=== PATIENT | female | born 1965 | race Caucasian/White ===

== ENCOUNTER 2016-12-31 05:30 | Day surgery (SDC) | payer OTHER ==
[2016-12-28 11:47] LABS: HEMATOCRIT 41.4 % (36.0-48.0); HEMOGLOBIN 13.7 g/dL (12-16); MCH 29.7 pg (26.0-34.0); MCHC 33.1 g/dL (31.0-37.0); MCV 89.6 fL (80.0-100.0); MEAN PLATELET VOLUME 9.9 fL (7.4-10.4); RBC 4.62 10x6/uL (4.00-5.40); RDW 14.4 % (11.5-14.5); WBC 7.9 10x3/uL (4.8-10.8)
[~2016-12-31] VITALS: Ht 162.6 cm; Wt 98.9 kg
[~2016-12-31 05:30] MED LIST: OMEPRAZOLE40 MG PO
[2016-12-31 05:52] VITALS: BP 141/74; Ht 162.6 cm; Wt 98.9 kg
[2016-12-31 06:20] LABS: HCG URINE NEGATIVE (NEGATIVE)
[2016-12-31] MEDS ORDERED: HYDROCODON-ACE1 EAC7 PO (08:53)
--- NOTE | 2016-12-31 11:15 | OP ---
PATIENT NAME: MARIBETH HAYWOOD MEDICAL RECORD: [id number] :63 LOCATION:D.OPS ADMISSION DATE: SURGEON: MELISSA ENRIQUEZ MD DATE OF OPERATION: 12/31/2016 SURGEON: Melissa Enriquez MD PREOPERATIVE DIAGNOSES: 1. Esophageal dysphagia. 2. Gastroesophageal reflux disease. 3. Gastric band complication. 4. History of laparoscopic adjustable gastric banding. POSTOPERATIVE DIAGNOSES: 1. Esophageal dysphagia. 2. Gastroesophageal reflux disease. 3. Gastric band complication. 4. History of laparoscopic adjustable gastric banding. PROCEDURE PERFORMED: Laparoscopic removal of gastric band with removal of subcutaneous port. ANESTHESIA: General. COMPLICATIONS: None. SPECIMENS: Band and subcutaneous port. ESTIMATED BLOOD LOSS: 10 cc. Case was clean. OPERATIVE COURSE: After consent was obtained, the patient was taken to the operating room and placed in supine position on the operating table. Next, general anesthesia was given via endotracheal intubation after a timeout was taken to confirm the correct patient and procedure. The abdomen was then prepped and draped in typical sterile fashion. Local anesthetic was injected just above the umbilicus. A stab incision was made with 11-blade scalpel. Using a 5-mm bladeless optical trocar, the abdomen was entered under direct laparoscopic vision. Adequate pneumoperitoneum was achieved. The abdominal cavity was inspected. No evidence of bowel injury. No evidence of bleeding. The patient was then placed in steep reverse Trendelenburg position. A medium Tom retractor was then placed in the left lobe of the liver. Two additional trocars were then placed in the right upper quadrant. Under direct laparoscopic vision and administration of local anesthetic, the band was dissected using blunt dissection, Metzenbaum scissors and electrocautery. Once old scars and bands were dissected, the band was disconnected. It was pulled through the previous area of dissection without complication. The area was meticulously inspected and irrigated. There was no evidence of injury. No evidence of bleeding. At this time, the local anesthetic was injected in the left upper quadrant, the previous scar incision over the palpable subcutaneous port skin was incised with #15 blade scalpel. Dissection continued down to the level of the external oblique fascia, which ____ port was encountered. All 3 sutures were cut. The port in the band removed through the left upper quadrant. The left upper quadrant fascia was then closed with an 0 Prolene suture. Skin OPERATIVE REPORT [id number] MARIBETH HAYWOOD was closed with 4-0 Stratafix. Pneumoperitoneum was reestablished. The abdominal cavity was inspected. There was no evidence of bowel injury. No evidence of bleeding. The GE junction was irrigated and suctioned again. No evidence of bowel injury. No evidence of bleeding. At this time, all the Tom liver retractor was removed. The remaining portion of the abdomen was examined. No evidence of bowel injury. No evidence of bleeding. At this time, all remaining instruments were removed. The abdomen was desufflated. Trocars removed. Trocar sites were closed with 4-0 Monocryl, Mastisol and Steri-Strips. At the end of the case, all needle and instrument counts were correct. No complications occurred. TRANSINT:[id number] Voice Confirmation ID: [id number] DOCUMENT ID: [id number] MELISSA ENRIQUEZ MD at 1115 CC: [id number] DICTATION DATE: 12/31/16 0851 PEDIATRIC ONCOLOGIST: 12/31/16 1052 REG [facility] [address] [place] [address]
--- NOTE | 2017-01-16 15:19 | HP ---
PATIENT: MARIBETH HAYWOOD MEDICAL RECORD: [id number] ACCOUNT: [id number] LOCATION:[place] : 63 ADMISSION DATE: 12/31/16 HISTORY AND PHYSICAL EXAMINATION Surgical History and Physical Addendum DATE OF HISTORY AND PHYSICAL: 12/31/2016 CHIEF COMPLAINT: Esophageal dysphagia. HISTORY OF PRESENT ILLNESS: This is a 51-year-old female, who had a gastric band placed approximately 8 years ago, she had complications and had replaced in 2010. She is now having complications again. She presents to my office with chronic vomiting, severe dysphagia with solid food, severe reflux as well as gastroesophageal reflux disease. PAST MEDICAL HISTORY: GERD, heart burn. PAST SURGICAL HISTORY: Gastric band in 2008, gastric band in 2010. SOCIAL HISTORY: She is a nonsmoker, social alcohol occasionally. FAMILY HISTORY: Hypertension and colon cancer in her father. Mother has hypertension and arthritis. MEDICATIONS: Include aspirin, cheratussin, cyclobenzaprine, and omeprazole. ALLERGIES: No known drug allergies. REVIEW OF SYSTEMS: A 12-point review of system was obtained, pertinent positive and negative as per the HPI. PHYSICAL EXAMINATION: VITAL SIGNS: Stable. She is afebrile. CARDIOVASCULAR: She has normal sinus rhythm. EYES: Extraocular muscles are intact. EARS, NOSE, AND THROAT: Normal dentition. LUNGS: Clear to auscultation bilaterally. ABDOMEN: Soft, nontender, and nondistended. EXTREMITIES: Neurovascular intact. No edema. IMPRESSION: A 51-year-old female with esophageal dysphagia, gastroesophageal reflux disease and chronic vomiting from complications of laparoscopic gastric banding procedure. PLAN: OR today for laparoscopic removal of gastric band. TRANSINT:[id number] Voice Confirmation ID: [id number] DOCUMENT ID: [id number] HISTORY AND PHYSICAL [id number] MARIBETH HAYWOOD MELISSA CHARLES MD at 1519 CC: [id number] DICTATION DATE: 01/16/17 1111 PHOTOGRAPHER MODEL: 01/16/17 1204 [facility] 12/31/[address] [address]
== END 2016-12-31 10:30 | disposition home or self-care (01) ==
LOC: D.OPS 05:30 → D.PAN 07:30 → D.OPS 08:45 → D.PAN 09:30 → D.OPS 10:30
PROVIDERS: Anesthesiology; Surgery
DX: K95.09 Other complications of gastric band procedure (principal); R13.19 Other dysphagia; K21.9 Gastro-esophageal reflux disease without esophagitis

== ENCOUNTER → 2017-02-04 08:14 | Outpatient (CLI) | payer OTHER ==
[2016-12-31 05:52] VITALS: BMI 37.5
[~2017-02-04 08:14] MED LIST changes: +HYDROCODON-ACE1 EAC7 PO; +PROTONIX40 MG PO
== END | disposition home or self-care (01) ==
LOC: D.RAD 08:14
DX: R13.19 Other dysphagia (principal); K21.9 Gastro-esophageal reflux disease without esophagitis; R11.10 Vomiting, unspecified

== ENCOUNTER 2017-02-18 06:15 | Day surgery (SDC) | payer OTHER, SELFPAY ==
[~2017-02-18] VITALS: Ht 162.6 cm; Wt 96.2 kg
[~2017-02-18 06:15] MED LIST changes: -PROTONIX40 MG PO
[2017-02-18 06:57] LABS: HEMOGLOBIN 13.5 g/dL (12-16); MCH 29.7 pg (26.0-34.0); MCHC 33.8 g/dL (31.0-37.0); MCV 87.9 fL (80.0-100.0); MEAN PLATELET VOLUME 10.3 fL (7.4-10.4); RBC 4.55 10x6/uL (4.00-5.40); RDW 14.7 % (11.5-14.5); WBC 7.6 10x3/uL (4.8-10.8)
[2017-02-18 07:19] VITALS: BP 158/98; Ht 162.6 cm; Wt 96.2 kg
[2017-02-18 07:37] LABS: HCG URINE NEGATIVE (NEGATIVE)
--- NOTE | 2017-02-18 11:09 | OP ---
PATIENT NAME: MARIBETH HAYWOOD MEDICAL RECORD: [id number] :63 LOCATION:D.OPS ADMISSION DATE: SURGEON: MELISSA ENRIQUEZ MD DATE OF OPERATION: 02/18/2017 SURGEON: Melissa Enriquez MD PREOPERATIVE DIAGNOSES: 1. Esophageal dysphagia 2. Gastroesophageal reflux disease. 3. Chronic vomiting. 4. History of adjustable gastric banding. POSTOPERATIVE DIAGNOSES: 1. Esophageal dysphagia 2. Gastroesophageal reflux disease. 3. Chronic vomiting. 4. History of adjustable gastric banding. PROCEDURES PERFORMED: Esophagogastroduodenoscopy with biopsy. ANESTHESIA: Total intravenous anesthesia. SPECIMENS 1. Duodenum. 2. Antrum. 3. Gastric body. 4. Gastroesophageal junction. COMPLICATIONS: None. ESTIMATED BLOOD LOSS: Minimal. Case was contaminated. OPERATIVE COURSE: After consent was obtained, the patient was taken to the endoscopy suite. A timeout was taken to confirm the correct patient and procedure. Adequate IV anesthesia was given. A bite block was placed. Hurricaine [place] was administered. Next, the gastroscope was inserted through the bite block. It was passed through the oropharynx, posterior to the epiglottis. It was advanced to the esophagus under direct endoscopic vision. It was placed in the stomach. The stomach was insufflated. The scope was advanced to the pylorus. The pylorus was intubated and the duodenum was examined. The duodenum appeared within normal limits. Multiple cold biopsies were taken at this time. The scope was withdrawn through the pylorus. There was some mild antritis noted. Multiple biopsies were taken in the region of the gastric antrum. The stomach and body were examined. There was some mild gastritis noted. Biopsies were taken. Scope was retroflexed. There was a small to moderate sized hiatal hernia noted. There was no residual scarring noted from the previous gastric band. The scope was withdrawn to the GE junction, at which time, multiple biopsies were taken. There were some abnormalities of the Z line noted. There was some dilatation of the lower esophagus. The stomach was then desufflated. The scope was withdrawn slowly to the esophagus. There were no esophageal abnormalities identified. At this time, the procedure was terminated. At the end of procedure, all needle and OPERATIVE REPORT [id number] MARIBETH HAYWOOD instrument counts were correct. No complications occurred. The patient tolerated the procedure well. The patient was transferred to the recovery room in satisfactory condition. TRANSINT:[id number] Voice Confirmation ID: [id number] DOCUMENT ID: [id number] MELISSA ENRIQUEZ MD at 1109 CC: [id number] DICTATION DATE: 02/18/17910 CEMENTING MACHINE OPERATOR: 02/18/17 1036 [address] [place] [id number] [place] [id number]
--- NOTE | 2017-02-18 16:45 | NUR ---
[address] OSPINA. PROCEDURE FINDINGS DISCUSSED WITH PATIENT. Abhilash Arroyo.NDavid 1045 TOLERATED FULL LIQUID DIET WITHOUT NAUSEA OR EMESIS. UP TO BATHROOM. AMBULATORY WITHOUT DIFFICULTY. VOIDED URINE. BACK TO BED. IV DC'ED WITH CATH INTACT & 200ML LTC. DRESSING. Abhilash HUSTON R.N. 1110 DRESSED. AWAKE & ALERT. GVINE DISCHARGE INSTRUCTIONS INCLUDING: MED REC, SHEET LISTING NSAIDS & BLOOD THINNNERS TO AVOID, & D/C INSTRUCTIONS SHEET POST ENDOSCOPIC PROCEDURES. PT VOICED UNDERSTANDING. TO PRIVATE CAR PER WHEELCHAIR BY VOLUNTEER. HOME WITH FEMALE VISITOR. Abhilash HUSTON R.N.
== END 2017-02-18 11:10 | disposition home or self-care (01) ==
LOC: D.OPS 06:15
PROVIDERS: Anesthesiology; Surgery
DX: K29.80 Duodenitis without bleeding (principal); K29.50 Unspecified chronic gastritis without bleeding; R13.10 Dysphagia, unspecified; K21.9 Gastro-esophageal reflux disease without esophagitis; Z98.84 Bariatric surgery status

== ENCOUNTER 2017-02-25 05:41 | Inpatient (IN) | payer OTHER ==
[2017-02-22 10:11] LABS: HEMATOCRIT 40.3 % (36.0-48.0); HEMOGLOBIN 13.2 g/dL (12-16); MCH 29.4 pg (26.0-34.0); MCHC 32.8 g/dL (31.0-37.0); MCV 89.8 fL (80.0-100.0); MEAN PLATELET VOLUME 10.6 fL (7.4-10.4); RBC 4.49 10x6/uL (4.00-5.40); RDW 14.9 % (11.5-14.5); WBC 8.5 10x3/uL (4.8-10.8)
[~2017-02-25] VITALS: Ht 162.6 cm; Wt 96.4 kg
[2017-02-25 06:32] VITALS: BP 142/73; BMI 36.4
[2017-02-25 06:51] LABS: HCG URINE NEGATIVE (NEGATIVE)
--- NOTE | 2017-02-25 10:41 | NUR ---
1044: WHYTE REMOVED AFTER CASE. -ECOSTER
[2017-02-25 11:39] VITALS: BP 170/73
--- NOTE | 2017-02-25 11:47 | NUR ---
RECIEVED TO ROOM 2235 FROM RR AWAKE AND ALERT ORIENTED X 3 LUNGS CLAER BIATERAL HAS LAP INCISIONS X 5 TO ABDOMEN. MOTHER AT BEDSIDE. ORINETD TO STAFF ROOM AND CALL LIGHT SYSTEM. PIV PATENT TO LR PER ORDER.
[2017-02-25 12:08] VITALS: BP 146/85; Ht 162.6 cm; Wt 96.4 kg
--- NOTE | 2017-02-25 14:00 | NUR ---
PT UP TO BR WITH ASSIST. 1430 AMBULATED 250 FT WITH THIS NURSE. TOLERATED WELL VITAL SIGNS WNL AFTER AMBULATION B/P 152/80 LAP SITES X 6 NOTED WITH MINIMAL SANGUANOUS DRAINAGE NOTED TO UMBILICAL INCISION.
--- NOTE | 2017-02-25 14:22 | OP ---
PATIENT NAME: MARIBETH HAYWOOD MEDICAL RECORD: [id number] :63 LOCATION:D.MS [facility]35 ADMISSION DATE:02/25/17 SURGEON: MELISSA OSPINA MD DATE OF OPERATION: 02/25/2017 SURGEON: Melissa Ospina MD PREOPERATIVE DIAGNOSES: 1. Esophageal dysphagia 2. Gastroesophageal reflux disease. 3. Chronic vomiting. 4. History of laparoscopic adjustable banding. 5. Morbid obesity. POSTOPERATIVE DIAGNOSES: 1. Esophageal dysphagia 2. Gastroesophageal reflux disease. 3. Chronic vomiting. 4. History of laparoscopic adjustable banding. 5. Morbid obesity. PROCEDURE PERFORMED: 1. Laparoscopic hiatal hernia repair. 2. Laparoscopic vertical sleeve gastrectomy. 3. Esophagogastroduodenoscopy. ANESTHESIA: General. SPECIMENS: Partial gastrectomy. ESTIMATED BLOOD LOSS: 50 cc. COMPLICATIONS: None. Case was contaminated. OPERATIVE COURSE: After consent was obtained, the patient was taken to the operating room and placed in supine position on the operating table. Next, general anesthesia was given via endotracheal intubation. Thereafter, a timeout was taken to confirm the correct patient and procedure. The abdomen was prepped and draped in typical sterile fashion. Adequate local anesthetic was injected just above the umbilicus. A stab incision was made with 11-blade scalpel. Using a 11-mm bladeless optical trocar, the abdomen was entered under direct laparoscopic vision. Adequate pneumoperitoneum was achieved. The abdominal cavity was inspected. No evidence of bowel injury. No evidence of bleeding. The patient was placed in steep reverse Trendelenburg position.. At this time, all remaining trocars were placed, a 12-mm and 5-mm trocar in the right lateral quadrant. Two 5-mm trocars in the left lateral quadrants and Tom liver retractor was placed in the subxiphoid position. The left lobe of the liver was retracted towards the GE junction. There were significant adhesions on the anterior part of the stomach and posterior part of the liver from his previous gastric band removal. A laparoscopic lysis of adhesions was performed. The gastrohepatic ligament was opened using the Harmonic scalpel. Dissection continued along the gastrohepatic ligament. The right crura was identified. Dissection continued posteriorly on the right crura until the left crura was OPERATIVE REPORT [id number] MARIBETH HAYWOOD identified. Dissection then continued anteriorly. Next, the short gastrics were taken. The pylorus was identified. Starting approximately 6 cm proximal to the pylorus. The short gastrics were taken along the entire length of the greater curvature of stomach all the way to the right crura with the Harmonic scalpel. At this time, dissection continued posteriorly along the left crura and anteriorly. The mediastinum was dissected to approximately 4 cm of intraabdominal esophagus were obtained. Once this was complete, the hiatal hernia was repaired using 0 polypropylene suture. Next, a 40-Andorran bougie was passed through the oropharynx under direct laparoscopic vision. Once ____ stomach, it was advanced through the pylorus and placed along the lesser curvature of the stomach. The vertical sleeve gastrectomy was then completed using the 60 mm powered linear cutting stapler with cold loads. The staple line was performed along the length of the 40-Andorran bougie. Once this was complete, the partial gastrectomy specimen was placed in the left pericolic gutter. The suture line was imbricated using an 2-0 Stratafix suture. Tisseel was applied along the hiatal hernia repair. At this time, a bowel clamp was placed across the first portion of duodenum and esophagogastroduodenoscopy was performed by Dr. Ohara. The scope was advanced under direct endoscopic vision and was passed into the stomach, at which time, the stomach was insufflated. The upper abdomen was filled with irrigation. A leak test was performed, which showed no evidence of leak. At this time, the stomach was desufflated. The endoscope was removed. All remaining irrigation was suctioned from the abdomen. The abdominal cavity was inspected. There was no evidence of bowel injury. No evidence of bleeding. At this time, the Tom liver retractor was removed. The 5-mm ____ was placed in the lateral port. The 12-mm and 11-mm trocar sites were closed with 0 Vicryl suture and a Ahmet-Isaac suture passer under direct laparoscopic vision. At this time, all remaining instruments were removed. The abdomen was desufflated. Trocars were removed. Skin was closed with 4-0 Monocryl, Mastisol and Steri-Strips. At the end of the case, all needle and instrument counts were correct. No complications occurred. The patient was extubated and transferred to the PACU in stable condition. TRANSINT:[id number] Voice Confirmation ID: [id number] DOCUMENT ID: [id number] MELISSA OSPINA MD at 1422 CC: [id number] DICTATION DATE: 02/25/17 1050 SOLUTION SPECIALIST: 02/25/17 1301 ADM [address] [place] [id number] [place] [address]
[2017-02-25 19:00] VITALS: BP 170/85
--- NOTE | 2017-02-26 01:36 | NUR ---
2010)REC'D UP IN BATHRM. DURING WALKING ROUNDS.OFELIA. WELL.ABD. SOFT WITH STERI STRIPS TO 6 LAP SITES.NO REDNESS OR DRAINAGE OBSERVED.DENIES PAIN C/O SORENESS.BOWEL SOUNDS HYPOACTIVE ALL QUAD.DENIES NAUSEA.ENCOURAGED TO WALK,WALK,WALK. USES INCENT. BECKY WHILE AWAKE VOICES UNDERSTANDING. WILL CONTINUE TO MONITOR FOR ANY CHGES.AND FOLLOW CURRENT PLAN OF CARE.
--- NOTE | 2017-02-26 03:02 | NUR ---
RESTING WITH EYES CLOSED, NO DISTRESS NOTED, SR'S UP ,CL IN REACH
[2017-02-26 04:00] VITALS: BP 140/70
[2017-02-26 04:58] LABS: BASOPHILS 0.2 % (0.0-2.0); EOSINOPHILS 2.5 % (0-7); HEMATOCRIT 34.1 % (36.0-48.0); IMMATURE GRANULOCYTES 0.6 % (0-5); LYMPHOCYTES 17.3 % (15-50); MCH 28.8 pg (26.0-34.0); MCHC 32.3 g/dL (31.0-37.0); MCV 89.3 fL (80.0-100.0); MONOCYTES 6.2 % (2-11); NEUTROPHILS 73.2 % (40-80); RBC 3.82 10x6/uL (4.00-5.40); WBC 9.4 10x3/uL (4.8-10.8)
[2017-02-26 05:11] LABS: CALC OSMOLALITY 270 mosm/kg (275-300); CHLORIDE - SERUM 100 mmol/L (98-107); CREATININE - SERUM 0.7 mg/dL (0.6-1.3); GLUCOSE 112 mg/dL (74-106); MAGNESIUM - SERUM 1.9 mg/dL (1.8-2.4); POTASSIUM - SERUM 3.4 mmol/L (3.5-5.1); SODIUM 136 mmol/L (136-145); UREA NITROGEN 8 mg/dL (7-18); eGFR NON AFRICAN AMERICAN > 90 mL/min (90-120)
[2017-02-26 05:13] LABS: PLATELET COUNT 203 10x3/uL (130-400)
[2017-02-26] MEDS ORDERED: HYDROCODON-ACE1 EAC7 PO (08:33)
[2017-02-26] MEDS ORDERED: PROTONIX40 MG PO (08:33)
--- NOTE | 2017-02-26 08:34 | NUR ---
PT AWAKE AND ALERT ORINETED X 3 LUNGS CLAER BILATERAL ABDOMEN TENDER TO TOUCH. ALL ADLS PER SELF CARE WITH STAND BY ASSIST OF STAFF LAP SITES X 6 NOTED WITH STERI STRIPS TO DISCHARGE TO DAY
--- NOTE | 2017-02-26 11:30 | NUR ---
PT DISCHARGE INSTRUCTIONS GIVEN PIV DISCONTINUED PER ORDER EXPRESSED UNDERSTANDING OF ALL D/C INSRTRUCTION AND FOLLOW UP APPTS. D/C VIA WHEELCHAIR TO PRIVATE VEHICLE WITH FAMILY
== END 2017-02-26 11:52 | disposition home or self-care (01) | DRG 328 ==
LOC: D.MS 05:41 → D.SDCHOLD 05:41 → D.MS 08:29
PROVIDERS: Anesthesiology; ADMIT Surgery
PROC: 0BQS4ZZ (ICD-10-PCS; 2017-02-25)
PROC: 0BQR4ZZ (ICD-10-PCS; 2017-02-25)
PROC: 0DB64Z3 Excision of Stomach, Percutaneous Endoscopic Approach, Vertical (ICD-10-PCS; principal; 2017-02-25 07:30)
DX: K44.9 Diaphragmatic hernia without obstruction or gangrene (principal); E66.01 Morbid (severe) obesity due to excess calories; Z68.36 Body mass index [BMI] 36.0-36.9, adult; R13.10 Dysphagia, unspecified; K21.9 Gastro-esophageal reflux disease without esophagitis; R11.10 Vomiting, unspecified

== ENCOUNTER 2021-02-21 10:10 | Day surgery (SDC) | payer OTHER ==
[~2021-02-21] VITALS: Ht 162.6 cm; Wt 93.4 kg
[~2021-02-21 10:10] MED LIST changes: +PROTONIX40 MG PO
[2021-02-21 11:48] VITALS: BP 144/71; Ht 162.6 cm; Wt 93.4 kg
[2021-02-21 12:12] LABS: HEMATOCRIT 43.4 % (36.0-48.0); MCH 32.7 pg (26.0-34.0); MCHC 34.6 g/dL (31.0-37.0); MCV 94.6 fL (80.0-100.0); MEAN PLATELET VOLUME 9.4 fL (7.4-10.4); RBC 4.59 10x6/uL (4.00-5.40); RDW 15.9 % (11.5-14.5); WBC 9.1 10x3/uL (4.8-10.8)
--- NOTE | 2021-02-21 14:33 | NUR ---
UPON COMPLETION OF COLONOSCOPY, PATIENT POSITIONED IN LITHOTOMY POSITION, PREPPED AND DRAPED. HEMORRHOIDECTOMY PROCEDURE TIME OUT AT 1430, PROCEDURE BEGAN AT 1431.
--- NOTE | 2021-02-21 16:55 | NUR ---
DC INSTURCTIONS GIVEN TO PT/SPOUSE. STATE UNDERSTANDING DC'D IV CATH FULLY INTACT. WILL DC SHORTLY.
--- NOTE | 2021-02-21 17:10 | NUR ---
PT LEFT UNIT VIA WC AT 1700
--- NOTE | 2021-02-21 17:24 | HP ---
PATIENT: MARIBETH HAYWOOD MEDICAL RECORD: [id number] ACCOUNT: [id number] LOCATION:DDavidOPS : 63 ADMISSION DATE: 02/21/21 PCP: ANTOINETTE MORALES MD HISTORY AND PHYSICAL EXAMINATION HISTORY OF PRESENT ILLNESS: The patient has been having hemorrhoidal problems. They include swelling as well as burning. She also describes some sharp pain. She has been having rectal bleeding as well. She is to undergo colonoscopy. We reviewed several different hemorrhoidal procedures including hemorrhoidectomy. The patient has elected for a procedure for prolapse and hemorrhoids. The risks and possible complications and alternatives of the procedure were explained to the patient. She elects to proceed. PAST MEDICAL AND SURGICAL HISTORY: She has had a lap band in the past and also a subsequent laparoscopic sleeve gastrectomy. She has undergone an EGD in the past. She has gastroesophageal reflux. FAMILY HISTORY: Father had hypertension. Mother had hypertension. ALLERGIES: TO ADHESIVE TAPE. PHYSICAL EXAMINATION: GENERAL: The patient does not appear acutely ill. She does not appear chronically ill. VITAL SIGNS: Reviewed. EARS: External ears appear normal. EYES: Extraocular movements are intact. NECK: Trachea is midline. CHEST: No intercostal retractions. PULMONARY: Nonlabored. No stridor. IMPRESSION: 1. Intractable symptomatic internal and external hemorrhoids. 2. Hematochezia. PLAN: Colonoscopy. Procedure for prolapse and hemorrhoids. TRANSINT:[id number] Voice Confirmation ID: [id number] DOCUMENT ID: [id number] APOLINAR GREGORY MD at 1724 CC: KENNY HAYWOOD MD [id number] DICTATION DATE: 02/21/21 1320 COLOR SHOP HELPER: 02/21/21 1419 [facility] 02/21/21 [place] [id number] [place] [address]
--- NOTE | 2021-02-23 09:40 | OP ---
PATIENT NAME: MARIBETH HAYWOOD MEDICAL RECORD: [id number] :63 LOCATION:D.OPS ADMISSION DATE: SURGEON: APOLINAR GREGORY MD DATE OF OPERATION: 02/21/2021 PRINCIPAL DIAGNOSES: 1. Hematochezia. 2. Intractable symptomatic external hemorrhoids. 3. Second-degree internal hemorrhoidal prolapse. POSTOPERATIVE DIAGNOSES: 1. Hematochezia. 2. Intractable symptomatic external hemorrhoids. 3. Second-degree internal hemorrhoidal prolapse. 4. 1.6 cm carpeting cecal polyp. PROCEDURE: 1. Procedure for prolapse and hemorrhoids. 2. Total colonoscopy to cecum. 3. Hot biopsy forceps polypectomy x1. 4. Application of 2 endoscopic clips for tissue reinforcement and hemostasis. SURGEON: Apolinar Gregory MD BLEACH PACKER: None. BLOOD LOSS: Minimal. ANESTHESIA: IV sedation. COMPLICATIONS: None. The patient was conveyed to the operating room electively on 02/21/2021. General anesthesia was induced by the anesthesia staff. The patient was placed in the Bah position. A digital rectal examination was performed. Colonoscope was inserted through the anus. It was easily advanced to the cecum. In the cecum, I noted, seen with narrow band imaging, a carpeting polyp. This was removed in 4 pieces utilizing hot biopsy forceps polypectomy technique. As this was the thinnest part of the colon, I wanted to reinforce this tissue. Additionally, there was minimal amount of bleeding. I deployed and fired two endoscopic clips, which I thought to be a nice job of reinforcing the area. I then slowly withdrew the endoscope. I intubated the ileum, which appeared normal. I continued to withdraw the endoscope. The prep was excellent. I dragged the folds. The pullback was greater than 20 mm pullback. A retroflexed view was obtained in the rectum. I un-retroflexed the scope and removed under direct vision. The patient was then placed in the lithotomy position with the buttocks taped laterally. The anus and perineal area were sterilely prepped and draped. A PPH dilator retractor was placed. The retractor was sewn in place to the surrounding anoderm with 2-0 silks. A mucosal pursestring suture of 2-0 Prolene was applied 1 cm cephalad to the clear retractor. The stapling device was advanced and the anvil was cephalad to the pursestring suture, which was then tightened. The stapling device was engaged. It was held in place for 3 minutes. It was then fired. It was removed. There was an entire doughnut of OPERATIVE REPORT [id number] MARIBETH HAYWOOD rectal mucosal tissue within the PPH stapling device. Bleeding along the anastomotic staple line was controlled with [id number] 3-0 Vicryl sutures. I examined the vagina. There was no evidence of full-thickness injury to the vagina. I saw no sutures from the back wall of the vagina. Gelfoam was applied within the anus and lower rectum. A combination of Marcaine and steroid preparation was used to infiltrate the perianal tissues. There were 2 anterior hemorrhoidal skin tags. I removed these with electrocautery. I then sewed up the skin with interrupted horizontal mattress 4-0 Vicryl Rapide sutures. The patient preoperatively had given me permission to remove skin tags. Americaine was applied to the external hemorrhoids. The patient was then extubated and conveyed to post-anesthesia care unit where she was in stable condition. She will need to be placed on a colonoscopy surveillance regimen due to this large polyp that will include surveillance colonoscopy in a year and then every 3 years for rest of life. There is no need for her to follow up with me in my office. Her , Georgi is a physician who is a friend of mine and I will talk to him over the phone regarding the pathology results and I can check in on how she is doing at that time. TRANSINT:[id number] Voice Confirmation ID: [id number] DOCUMENT ID: [id number] 02/23/2021 Edited for regional extension service specialist errors, [email or web address]. APOLINAR GREGORY MD at 0940 CC: KENNY HAYWOOD MD [id number] DICTATION DATE: 02/21/21 1759 DENITRATOR OPERATOR: 02/22/21 0101 [facility] 02/21/21 [place] [address] [place] [address]
== END 2021-02-21 17:00 | disposition home or self-care (01) ==
LOC: D.OPS 10:10
PROVIDERS: Anesthesiology; ATTEND Surgery
DX: K92.1 Melena (principal); K64.4 Residual hemorrhoidal skin tags; K64.1 Second degree hemorrhoids; K63.5 Polyp of colon; K21.9 Gastro-esophageal reflux disease without esophagitis; Z12.11 Encounter for screening for malignant neoplasm of colon; K64.8 Other hemorrhoids; R19.7 Diarrhea, unspecified; C64.9 Malignant neoplasm of unspecified kidney, except renal pelvis